=== PATIENT | female | born 1930 | race Caucasian/White ===

== ENCOUNTER 2020-09-23 10:19 | Emergency (ER) | payer MEDICARE ==
[~2020-09-23] VITALS: Ht 172.7 cm; Wt 60.1 kg
[~2020-09-23 10:19] MED LIST: AMLO-186 PO; ASPI325T11 PO; ATOR40TA59 PO; BUDE10.2 IH; CARB1TAB25 PO; CYAN100016 SL; CYCL5TAB PO; DIPH25CA58 PO; FERR-36 PO; FURO40TA4 PO; IBUP1TAB12 PO; LEVO100T5 PO; METO25TA4 PO; METO50TA6 PO; OXYC-325 PO; POTA10TA6 PO
[2020-09-23 11:20] VITALS: BP 189/79
[2020-09-23] MEDS ORDERED: LIDOCAINE 1%/EPI 1:100,000 20 ML VIAL. INJ ONE (12:30)
--- NOTE | 2020-09-23 13:18 | RAD ---
EXAM: XR RT WRIST 3VIEWS 09/23/2020 11:34 AM CLINICAL INDICATION: Laceration of her ulnar aspect of wrist. Rule out foreign body or fracture COMPARISON: None TECHNIQUE: 3 views of the right FINDINGS: There is no acute fracture or dislocation. The bones are diffusely demineralized. There is severe triscaphe the joint space narrowing with subchondral sclerosis and small subchondral cysts. T here is an old healed distal radius fracture and old ununited ulnar styloid process fracture. There i s dorsal tilt of the lunate, likely sequela of old ligamentous injury. Mild soft tissue swelling fauzia g the ulna without radiopaque foreign body. IMPRESSION: 1. No acute osseous abnormality or radiopaque foreign body. 2. Sequela of old distal radius and ulnar fractures. 3. Osteopenia. Severe triscaphe degenerative joint disease. Electronically signed by: Joan Kumar MD (09/23/2020 1:15 PM) [id number]
--- NOTE | 2020-09-23 13:46 | PHYS DOC ---
Past Medical History Past Medical History: COPD Additional Past Medical Histor: PARKINSONS Past Surgical History: Hysterectomy, Other Smoking Status: Never Smoker Alcohol Use: None General Adult EDM: Chief Complaint: LACERATION/AVULSION HPI: HPI: Patient is a 89 year old female with history of Parkinson's disease who presents with a laceration to her right wrist. She was walking in her kitchen when she tripped on something on the floor. She was holding a piece of glass which cut her right wrist on the ulnar aspect. She has had a recent tetanus shot. She denies any weakness, numbness. Bleeding stopped on its own with some pressure. She denies any pain with range of motion. Review of Systems: Review of Systems: Constitutional: Denies fever or chills. [] Eyes: Denies change in visual acuity. [] HENT: Denies nasal congestion or sore throat. [] Respiratory: Denies cough or shortness of breath. [] Cardiovascular: Denies chest pain or edema. [] GI: Denies abdominal pain, nausea, vomiting, bloody stools or diarrhea. [] : Denies dysuria. [] Musculoskeletal: Denies back pain or joint pain. [] Integument: + Laceration. Denies rash. [] Neurologic: Denies headache, focal weakness or sensory changes. [] Endocrine: Denies polyuria or polydipsia. [] Lymphatic: Denies swollen glands. [] Psychiatric: Denies depression or anxiety. [] Heart Score: C/O Chest Pain: N/A Risk Factors: Risk Factors: DM, Current or recent (<one month) smoker, HTN, HLP, family history of CAD, obesity. Risk Scores: Score 0 - 3: 2.5% MACE over next 6 weeks - Discharge Home Score 4 - 6: 20.3% MACE over next 6 weeks - Admit for Clinical Observation Score 7 - 10: 72.7% MACE over next 6 weeks - Early Invasive Strategies Family History: Family History: No pertinent family history Current Medications: Current Medications Medications (Trade) Dose Ordered Sig/Genaro Start Time Stop Time Status Last Admin Dose Admin Lidocaine/ Epinephrine (LIDOCAINE 1%-EPI 1:100,000 Multi-Dose) 20 ml 1X ONCE 09/23/20 12:30 09/23/20 12:31 DC 09/23/20 12:28 20 ML Allergies: Allergies: Allergies Coded Allergies Type Severity Reaction Last Updated Verified I S O L A T I O N *CONTACT* Allergy Unknown 04/20/20 Yes No Known Medication Allergies Allergy Unknown 04/20/20 Yes Physical Exam: PE: Constitutional: Well developed, well nourished, no acute distress, non-toxic appearance. [] HENT: Normocephalic, atraumatic, bilateral external ears normal, oropharynx moist, no oral exudates, nose normal. [] Eyes: PERRLA, EOMI, conjunctiva normal, no discharge. [] Neck: Normal range of motion, no tenderness, supple, no stridor. [] Cardiovascular:Heart rate regular rhythm, no murmur [] Lungs & Thorax: Bilateral breath sounds clear to auscultation [] Abdomen: Bowel sounds normal, soft, no tenderness, no masses, no pulsatile masses. [] Skin: Warm, dry, no erythema, no rash. [] Back: No tenderness, no CVA tenderness. [] Extremities: Right wrist with a 2.5 cm curvilinear laceration over the anterior medial aspect just proximal to the wrist joint. No evidence of open fracture. Good range of motion of the wrist. Median, ulnar, radial nerves intact through motor and sensory distributions. Good radial pulse. Good ulnar pulse. [] Neurologic: Alert and oriented X 3, normal motor function, normal sensory function, no focal deficits noted. [] Psychologic: Affect normal, judgement normal, mood normal. [] Indication: 25 cm laceration on the right wrist Procedure: The patient was placed in the appropriate position and anesthesia around the laceration was anesthetized with 1% lidocaine with epinephrine. . The area was then copious amounts of normal saline. Wound bed was inspected and did not see any foreign bodies.. The laceration was closed with 4-0 nylon. Five simple interrupted stitches. Total repaired wound length: 2.5 cm. Other Items: X-ray was obtained prior to lack repair and did not show fracture or foreign body The patient tolerated the procedure well.. Complications: None. Current Patient Data: Vital Signs: Vital Signs Date Time Temp Pulse Resp B/P (MAP) Pulse Ox O2 Delivery O2 Flow Rate FiO2 09/23/20 11:20 96.4 63 20 189/79 (79) 95 Room Air 96.4 EKG: EKG: [] Radiology/Procedures: Radiology/Procedures: [] Impression: [facility] [address] [place] [address] IMAGING REPORT Signed PATIENT: SYLVAIN ADAMES ACCOUNT: [id number] : 1930 LOCATION: ER AGE: 89 SEX: F EXAM STATUS: REG ER ORD. PHYSICIAN: KATHLEEN WOLFE MD REASON: laceration over ulnar aspect of wrist. ensure no glass foreign body or fx. PROCEDURE: WRIST 3V RIGHT EXAM: XR RT WRIST 3VIEWS 09/23/2020 11:34 AM CLINICAL INDICATION: Laceration of her ulnar aspect of wrist. Rule out foreign body or fracture COMPARISON: None TECHNIQUE: 3 views of the right FINDINGS: There is no acute fracture or dislocation. The bones are diffusely demineralized. There is severe triscaphe the joint space narrowing with subchondral sclerosis and small subchondral cysts. There is an old healed distal radius fracture and old ununited ulnar styloid process fracture. There is dorsal tilt of the lunate, likely sequela of old ligamentous injury. Mild soft tissue swelling along the ulna without radiopaque foreign body. IMPRESSION: 1. No acute osseous abnormality or radiopaque foreign body. 2. Sequela of old distal radius and ulnar fractures. 3. Osteopenia. Severe triscaphe degenerative joint disease. Electronically signed by: Joan Kumar MD (09/23/2020 1:15 PM) [id number] DICTATED and SIGNED BY: JOAN KUMAR MD DATE: 09/23/20 [id number] 0 Course & Med Decision Making: Course & Med Decision Making Pertinent Labs and Imaging studies reviewed. (See chart for details) Patient is an 89-year-old female with history of Parkinson's who presents after mechanical fall and a laceration sustained with a piece of glass to her right wrist. 2.5 cm laceration as described above was closed with 4-0 nylon, 5 interrupted sutures. Tdap is up-to-date. Wound instructions given. Patient is otherwise well-appearing and at her baseline. Do not feel that she requires any further intervention or work-up in the emergency department. Joe Disclaimer: Joe Disclaimer: This electronic medical record was generated, in whole or in part, using a voice recognition dictation system. Departure Departure Impression: Primary Impression: Laceration Disposition: HOME / SELF CARE / HOMELESS Condition: STABLE Additional Instructions: You have a laceration in your right wrist. We placed 5 stitches. These will need to come out in 7 to 10 days. Please schedule appointment with your primary care doctor, or visit in ED or urgent care to have these removed. Keep the area clean and dry. Keep it dressed. Use an ointment such as Neosporin or bacitracin on it. If you have increasing swelling, pain, redness, or warmth these are all signs of potential infection. If these occur please see your doctor. KATHLEEN WOLFE MD Sep 23, 2020 13:46
== END 2020-09-23 14:11 | disposition home or self-care (01) ==
LOC: ER 10:19
DX: S61.511A Laceration without foreign body of right wrist, initial encounter (principal); J44.9 Chronic obstructive pulmonary disease, unspecified; G20 Parkinson's disease; Z91.041 Radiographic dye allergy status; W18.40XA Slipping, tripping and stumbling without falling, unspecified, initial encounter; Y93.01 Activity, walking, marching and hiking; Y92.89 Other specified places as the place of occurrence of the external cause; Y99.8 Other external cause status
CPT/HCPCS: 12001; 73110; 99282; J3490